=== PATIENT | male | born 1945 ===

== ENCOUNTER → 2017-10-09 | Outpatient (CLI) | payer OTHER ==
[~2017-10-09] MED LIST: ASPEC325 PO; CLB200 PO; FISHOIL PO; GLCSUNK; LISI-725 PO; LRT5 PO
== END | disposition home or self-care (01) ==
LOC: C.PATHSPEC 17:17
PROVIDERS: ATTEND Plastic Surgery
DX: C44.91 Basal cell carcinoma of skin, unspecified (principal)